=== PATIENT | female | born 1955 | race American Indian/Alaskan Native ===

== ENCOUNTER 2020-08-22 17:36 | Emergency (ER) | payer OTHER ==
[~2020-08-22] VITALS: Ht 170.2 cm; Wt 168.7 kg
[~2020-08-22 17:36] MED LIST: DIVALPROEX SOD500 M1 PO; GABAPENTIN600 MG PO; HYDROCHLOROTHIA25 MG PO; LISINOPRIL40 MG PO; METFORMIN HCL500 M1 PO; METHYLPHENIDATE10 MG PO; NORCO 5-325 TA1 EACH PO; QUETIAPINE FUMA25 MG PO
[2020-08-22] MEDS ORDERED: OXYCODONE HCL5 MG PO (19:40)
== END 2020-08-22 20:02 | disposition home or self-care (01) ==
LOC: ED 17:36
DX: M25.561 Pain in right knee (principal); E11.9 Type 2 diabetes mellitus without complications; F31.9 Bipolar disorder, unspecified; F17.200 Nicotine dependence, unspecified, uncomplicated; Z88.1 Allergy status to other antibiotic agents; Z79.899 Other long term (current) drug therapy; Z79.84 Long term (current) use of oral hypoglycemic drugs
CPT/HCPCS: 72170; 73560; 99283-25

== ENCOUNTER 2023-02-08 13:33 | Emergency (ER) | payer OTHER ==
[~2023-02-08] VITALS: Ht 170.2 cm; Wt 181.4 kg
[~2023-02-08 13:33] MED LIST changes: +OXYCODONE HCL5 MG PO
[2023-02-08] MEDS ORDERED: NEURONTIN300 MG PO (15:38)
[2023-02-08 16:30] VITALS: BP 112/79
== END 2023-02-08 16:45 | disposition home or self-care (01) ==
LOC: ED 13:33
DX: M54.42 Lumbago with sciatica, left side (principal); E11.9 Type 2 diabetes mellitus without complications; F17.200 Nicotine dependence, unspecified, uncomplicated; E66.01 Morbid (severe) obesity due to excess calories; Z68.44 Body mass index [BMI] 60.0-69.9, adult; Z88.1 Allergy status to other antibiotic agents
CPT/HCPCS: 99283